=== PATIENT | female | born 1980 | race Caucasian/White ===

== ENCOUNTER 2016-08-16 11:52 | Emergency (ER) | payer BC ==
[~2016-08-16] VITALS: Ht 165.1 cm; Wt 141.1 kg
[~2016-08-16 11:52] MED LIST: BACTRIM,SEPT1 TABLET PO; BYSTOLIC5 MG PO; CIPRO500 MG PO; DILAUDID2 MG PO; ENPRESSE1 EACH PO; EXALGO8 MG PO; FENTANYL TD; FLAGYL500 MG PO; FLEXERIL10 MG PO; GAS-X80 MG PO; HORIZANT600 MG PO; KADIAN10 MG PO; LEXAPRO10 MG PO; LOW DOSE ASPIRI81 M1 PO; PROTONIX40 MG PO; TRIVORA-281 EACH PO; TYLENOL REGULA325 MG PO; TYLENOL WITH C1 EACH PO; VANCOMYCIN HCL125 MG PO; ZOFRAN ODT4 MG PO; ZOFRAN ODT8 MG PO; ZOFRAN4 MG PO
[2016-08-16] MEDS ORDERED: OSTERA TABLET1 EACH PO (14:14)
[2016-08-16 14:26] LABS: HEMATOCRIT 43.8 % (36.0-46.0); MCH 27.3 PG (29.0-34.0); MCHC 31.5 G/DL (30.0-36.0); MCV 86.6 FL (83-99); MEAN PLAT.VOLUME 10.2 uM^3 (9.5-12.4); PLATELET COUNT 317 K/uL (156-360); RBC DIS.WIDTH-CV 14.5 % (11.8-14.6); RBC DIS.WIDTH-SD 45.8 % (39-53); RED BLOOD COUNT 5.06 M/uL (3.80-5.20)
[2016-08-16 14:27] LABS: WHITE BLOOD COUNT 16.9 K/uL (4.1-10.2)
[2016-08-16 14:37] LABS: ADD MIUA? YES; BILIRUBIN NEGATIVE; BLOOD LARGE; COLOR YELLOW ((YELLOW)); GLUCOSE (STRIP) NEGATIVE; KETONES 5; LEUKOCYTES NEGATIVE; NITRITE NEGATIVE; PROTEIN (STRIP) 30; UROBILINOGEN 0.2 MG/DL (0.2-1.0)
[2016-08-16 14:38] LABS: CHLORIDE 106 mEq/L (99-109); POTASSIUM 3.9 mEq/L (3.7-5.4); SODIUM 139 mEq/L (136-147)
[2016-08-16 14:40] LABS: GLUCOSE 83 mg/dL (70-99)
[2016-08-16 14:41] LABS: ANION GAP 12 MEQ/L (2-14)
[2016-08-16 14:42] LABS: BACTERIA RARE /HPF; EPITHELIAL CELLS 2+ /HPF; MUCUS TRACE /LPF; RED BLOOD CELLS 0-5 /HPF (0-5); UCUL ADDED? NO; WHITE BLOOD CELLS 0-5 /HPF (0-5)
[2016-08-16 14:42] LABS: TOTAL BILIRUBIN 0.9 mg/dL (0.0-1.0)
[2016-08-16 14:44] LABS: ALKALINE PHOSPHATASE 74 IU/L (3-129); GFR ESTIMATE (CALCULATED) > 59 mL/min/
[2016-08-16 14:45] LABS: UREA NITROGEN (BUN) 11 mg/dL (9-23)
[2016-08-16 14:49] LABS: QUANTITATIVE HCG < 4.0 MIU/ML
[2016-08-16] MEDS ORDERED: FLAGYL500 MG PO (17:15)
[2016-08-16] MEDS ORDERED: BACTRIM,SEPT1 TABLET PO (17:15)
[2016-08-16] MEDS ORDERED: TYLENOL WITH C1 EACH PO (17:30)
[2016-08-16 17:42] VITALS: BP 130/76
== END 2016-08-16 17:47 | disposition home or self-care (01) ==
LOC: EME 11:52
DX: K57.32 Diverticulitis of large intestine without perforation or abscess without bleeding (principal); R11.2 Nausea with vomiting, unspecified; G89.29 Other chronic pain
CPT/HCPCS: 74177; 76856; 80053; 81003; 84702; 85027; 99281; 99284; J2270; J7030

== ENCOUNTER 2017-05-23 21:23 | Emergency (ER) | payer BC ==
[~2017-05-23] VITALS: Ht 162.6 cm; Wt 146.3 kg
[~2017-05-23 21:23] MED LIST changes: +OSTERA TABLET1 EACH PO
[2017-05-23 22:03] LABS: BASOPHIL (%) 0.1 % (0-1); EOSINOPHIL (%) 0 % (0-5); HEMATOCRIT 39.1 % (36.0-46.0); HEMOGLOBIN 12.6 G/DL (11.9-15.5); IMMATURE GRANULOCYTE (%) 0.6 % (0.0-0.7); LYMPHOCYTE (%) 11.3 % (15-42); LYMPHOCYTE COUNT 1.3 K/uL (1.0-2.8); MCH 28.1 PG (29.0-34.0); MCHC 32.2 G/DL (30.0-36.0); MCV 87.3 FL (83-99); MONOCYTE (%) 3.5 % (3-12); MONOCYTE COUNT 0.4 K/uL (0-0.8); NEUTROPHIL (%) 84.5 % (45-76); NEUTROPHIL COUNT 9.6 K/uL (1.8-6.4); PLATELET COUNT 340 K/uL (156-360); RBC DIS.WIDTH-CV 14.5 % (11.8-14.6); RBC DIS.WIDTH-SD 46.4 % (39-53); RED BLOOD COUNT 4.48 M/uL (3.80-5.20); WHITE BLOOD COUNT 11.3 K/uL (4.1-10.2)
[2017-05-23 22:13] LABS: CHLORIDE 110 mEq/L (99-109); POTASSIUM 3.6 mEq/L (3.7-5.4); SODIUM 140 mEq/L (136-147)
[2017-05-23 22:14] LABS: MAGNESIUM 1.8 mg/dL (1.3-2.7)
[2017-05-23 22:15] LABS: GLUCOSE 190 mg/dL (70-99)
[2017-05-23 22:19] LABS: CREATININE 0.8 mg/dL (0.6-1.3); GFR ESTIMATE (CALCULATED) > 59 mL/min/; PTT 26.1 SEC (25-37)
[2017-05-23 22:20] LABS: UREA NITROGEN (BUN) 13 mg/dL (9-23)
[2017-05-23 22:28] LABS: TROP-I INTERPRETATION NEGATIVE; TROPONIN-I 0.01 ng/mL (0.0-0.30)
[2017-05-24 01:52] LABS: TROP-I INTERPRETATION NEGATIVE; TROPONIN-I < 0.01 ng/mL (0.0-0.30)
[2017-05-24 03:02] VITALS: BP 164/87
== END 2017-05-24 03:12 | disposition home or self-care (01) ==
LOC: EME → EDBD 21:23 → EME 21:23
PROVIDERS: Emergency Medicine
DX: R07.9 Chest pain, unspecified (principal); I10 Essential (primary) hypertension; F41.0 Panic disorder [episodic paroxysmal anxiety]; E21.3 Hyperparathyroidism, unspecified; Z88.0 Allergy status to penicillin; Z88.5 Allergy status to narcotic agent; Z88.8 Allergy status to other drugs, medicaments and biological substances
CPT/HCPCS: 71045; 71275; 80048; 83735; 84484; 85025; 85379; 85610; 85730; 93005; 99281; 99285; J2270; J7030

== ENCOUNTER 2017-07-31 08:27 | Day surgery (SDC) | payer BC ==
[~2017-07-31] VITALS: Ht 167.6 cm; Wt 150.0 kg
[~2017-07-31 08:27] MED LIST changes: +CALTRATE 600 +1 EAC1 PO; +HYDROXYCHLOROQ200 MG PO; +LODINE XL500 MG PO; +MAGNESIUM400 M1 PO; +OMEPRAZOLE40 M1 PO; +SERTRALINE HCL50 MG PO
[2017-07-31 09:04] VITALS: BP 181/88
[2017-07-31] MEDS ORDERED: IBUPROFEN800 MG PO (09:45)
[2017-07-31] MEDS ORDERED: ENDOCET 5-3251 EACH PO (09:45)
[2017-07-31] MEDS ORDERED: ZOFRAN4 MG PO (09:46)
[2017-07-31 13:15] VITALS: BP 156/70
[2017-07-31 13:20] VITALS: BP 176/80
[2017-07-31 14:15] VITALS: BP 155/65
[2017-07-31 15:28] VITALS: BP 178/85
== END 2017-07-31 15:30 | disposition home or self-care (01) ==
LOC: SDC 08:27
DX: N92.0 Excessive and frequent menstruation with regular cycle (principal); R10.2 Pelvic and perineal pain; E66.01 Morbid (severe) obesity due to excess calories; Z68.43 Body mass index [BMI] 50.0-59.9, adult; N80.0 Endometriosis of uterus
CPT/HCPCS: 88307; J0690; J1100; J1885; J2250; J2405; J2765; Q0175; S0020

== ENCOUNTER 2017-09-01 22:18 | Emergency (ER) | payer BC ==
[~2017-09-01] VITALS: Ht 165.1 cm; Wt 151.5 kg
[~2017-09-01 22:18] MED LIST changes: +ENDOCET 5-3251 EACH PO; +IBUPROFEN800 MG PO
[2017-09-01 23:18] LABS: HEMATOCRIT 39.8 % (36.0-46.0); HEMOGLOBIN 12.6 G/DL (11.9-15.5); MCH 26.8 PG (29.0-34.0); MCHC 31.7 G/DL (30.0-36.0); MCV 84.5 FL (83-99); PLATELET COUNT 312 K/uL (156-360); RBC DIS.WIDTH-CV 14.6 % (11.8-14.6); RBC DIS.WIDTH-SD 44.9 % (39-53); RED BLOOD COUNT 4.71 M/uL (3.80-5.20)
[2017-09-01 23:27] LABS: ALBUMIN 4.1 g/dL (3.2-4.8)
[2017-09-01 23:28] LABS: CHLORIDE 107 mEq/L (99-109); POTASSIUM 3.5 mEq/L (3.7-5.4); SODIUM 141 mEq/L (136-147)
[2017-09-01 23:30] LABS: GLUCOSE 121 mg/dL (70-99); TOTAL PROTEIN 6.8 g/dL (6.4-8.3)
[2017-09-01 23:32] LABS: TOTAL BILIRUBIN 0.5 mg/dL (0.0-1.0)
[2017-09-01 23:33] LABS: ALKALINE PHOSPHATASE 83 IU/L (3-129); CREATININE 0.8 mg/dL (0.6-1.3); GFR ESTIMATE (CALCULATED) > 59 mL/min/
[2017-09-01 23:35] LABS: AST (GOT) 22 IU/L (2-34); UREA NITROGEN (BUN) 10 mg/dL (9-23)
[2017-09-01 23:36] LABS: ALT (GPT) 24 IU/L (3-49)
[2017-09-01 23:40] LABS: APPEARANCE CLOUDY ((CLEAR)); BILIRUBIN SMALL; BLOOD NEGATIVE; COLOR AMBER ((YELLOW)); GLUCOSE (STRIP) NEGATIVE; KETONES NEGATIVE; LEUKOCYTES MODERATE; NITRITE NEGATIVE; PROTEIN (STRIP) >=500; SPECIFIC GRAVITY 1.035 (1.000-1.030)
[2017-09-01 23:42] LABS: QUANTITATIVE HCG < 4.0 MIU/ML
[2017-09-02 00:02] LABS: BACTERIA 2+ /HPF; CALCIUM OXALATE CRYSTALS 4+ /HPF; EPITHELIAL CELLS 3+ /HPF; HYALINE CASTS 15-20 /LPF; MUCUS 4+ /LPF; RED BLOOD CELLS 0-5 /HPF (0-5); UCUL ADDED? YES; WHITE BLOOD CELLS 30-40 /HPF (0-5)
[2017-09-02 01:51] LABS: LIPASE 105 U/L (1.0-51.0)
[2017-09-02] MEDS ORDERED: CIPRO500 MG PO (02:22)
[2017-09-02 03:54] VITALS: BP 156/83
== END 2017-09-02 03:55 | disposition home or self-care (01) ==
LOC: EME 22:18
DX: N39.0 Urinary tract infection, site not specified (principal); R10.31 Right lower quadrant pain; Z90.710 Acquired absence of both cervix and uterus; M79.7 Fibromyalgia; E21.3 Hyperparathyroidism, unspecified; F41.9 Anxiety disorder, unspecified; Z88.0 Allergy status to penicillin; Z88.5 Allergy status to narcotic agent; Z88.6 Allergy status to analgesic agent
CPT/HCPCS: 74176; 80053; 81003; 83690; 84702; 85027; 87086; 99281; 99285; J0744; J2270; J2405; J7030

== ENCOUNTER 2017-09-13 10:32 | Emergency (ER) | payer BC ==
[~2017-09-13] VITALS: Ht 165.1 cm; Wt 150.0 kg
[2017-09-13 12:39] LABS: HEMATOCRIT 40.4 % (36.0-46.0); HEMOGLOBIN 12.9 G/DL (11.9-15.5); MCH 26.9 PG (29.0-34.0); MCHC 31.9 G/DL (30.0-36.0); MCV 84.3 FL (83-99); PLATELET COUNT 308 K/uL (156-360); RBC DIS.WIDTH-CV 14.7 % (11.8-14.6); RBC DIS.WIDTH-SD 45.4 % (39-53); RED BLOOD COUNT 4.79 M/uL (3.80-5.20); WHITE BLOOD COUNT 7.5 K/uL (4.1-10.2)
[2017-09-13 13:01] LABS: APPEARANCE SL.HAZY ((CLEAR)); BILIRUBIN NEGATIVE; BLOOD NEGATIVE; COLOR YELLOW ((YELLOW)); GLUCOSE (STRIP) NEGATIVE; KETONES NEGATIVE; LEUKOCYTES SMALL; NITRITE NEGATIVE; PROTEIN (STRIP) NEGATIVE; UROBILINOGEN 0.2 MG/DL (0.2-1.0)
[2017-09-13 13:08] LABS: ALBUMIN 4.2 G/DL (3.2-4.8); ALKALINE PHOSPHATASE 68 IU/L (3-129); ALT (GPT) 22 IU/L (3-49); AST (GOT) 20 IU/L (2-34); CHLORIDE 106 MEQ/L (99-109); CREATININE 0.7 MG/DL (0.6-1.3); GFR ESTIMATE (CALCULATED) > 59 mL/min/; GLUCOSE 89 mg/dL (70-99); POTASSIUM 4.3 MEQ/L (3.7-5.4); SODIUM 137 MEQ/L (136-147); TOTAL BILIRUBIN 0.4 MG/DL (0.0-1.0); TOTAL PROTEIN 6.9 G/DL (6.4-8.3); UREA NITROGEN (BUN) 11 mg/dL (9-23)
[2017-09-13 13:14] LABS: BACTERIA RARE /HPF; EPITHELIAL CELLS 2+ /HPF; MUCUS TRACE /LPF; RED BLOOD CELLS 0-5 /HPF (0-5); UCUL ADDED? NO; WHITE BLOOD CELLS 0-5 /HPF (0-5)
[2017-09-13] MEDS ORDERED: ZOFRAN ODT4 MG PO (15:18)
[2017-09-13] MEDS ORDERED: MOTRIN600 MG PO (15:18)
[2017-09-13] MEDS ORDERED: PYRIDIUM200 MG PO (15:18)
[2017-09-13] MEDS ORDERED: FLEXERIL10 MG PO (15:18)
[2017-09-13] MEDS ORDERED: ENDOCET 5-3251 EACH PO (15:20)
[2017-09-13 15:35] VITALS: BP 167/91
== END 2017-09-13 15:39 | disposition home or self-care (01) ==
LOC: EME 10:32
PROVIDERS: Nurse Practitioner Family
DX: R10.9 Unspecified abdominal pain (principal); R11.0 Nausea; M54.5 Low back pain; F41.9 Anxiety disorder, unspecified; Z90.49 Acquired absence of other specified parts of digestive tract; Z88.0 Allergy status to penicillin; Z88.5 Allergy status to narcotic agent; Z88.6 Allergy status to analgesic agent; Z88.8 Allergy status to other drugs, medicaments and biological substances
CPT/HCPCS: 80053; 81003; 85027; 99281; 99284

== ENCOUNTER 2017-10-16 11:07 | Emergency (ER) | payer BC ==
[~2017-10-16] VITALS: Ht 165.1 cm; Wt 150.6 kg
[~2017-10-16 11:07] MED LIST changes: +MOTRIN600 MG PO; +PYRIDIUM200 MG PO
[2017-10-16 12:11] LABS: BASOPHIL (%) 0.3 % (0-1); EOSINOPHIL (%) 2.5 % (0-5); EOSINOPHIL COUNT 0.2 K/uL (0-0.3); IMMATURE GRANULOCYTE (%) 0.2 % (0.0-0.7); LYMPHOCYTE (%) 25.1 % (15-42); LYMPHOCYTE COUNT 2.2 K/uL (1.0-2.8); MCH 26.6 PG (29.0-34.0); MCHC 31.6 G/DL (30.0-36.0); MCV 84.3 FL (83-99); MONOCYTE (%) 5.9 % (3-12); MONOCYTE COUNT 0.5 K/uL (0-0.8); NEUTROPHIL COUNT 5.8 K/uL (1.8-6.4); PLATELET COUNT 321 K/uL (156-360); RBC DIS.WIDTH-CV 14.8 % (11.8-14.6); RBC DIS.WIDTH-SD 45.6 % (39-53); RED BLOOD COUNT 4.51 M/uL (3.80-5.20); WHITE BLOOD COUNT 8.8 K/uL (4.1-10.2)
[2017-10-16 12:18] LABS: CHLORIDE 105 mEq/L (99-109); POTASSIUM 4.3 mEq/L (3.7-5.4)
[2017-10-16 12:19] LABS: MAGNESIUM 2.1 mg/dL (1.3-2.7); SODIUM 138 mEq/L (136-147)
[2017-10-16 12:21] LABS: GLUCOSE 89 mg/dL (70-99); TOTAL PROTEIN 6.7 g/dL (6.4-8.3)
[2017-10-16 12:23] LABS: TOTAL BILIRUBIN 0.4 mg/dL (0.0-1.0)
[2017-10-16 12:24] LABS: ALKALINE PHOSPHATASE 80 IU/L (3-129)
[2017-10-16 12:25] LABS: CREATININE 0.8 mg/dL (0.6-1.3); GFR ESTIMATE (CALCULATED) > 59 mL/min/
[2017-10-16 12:26] LABS: AST (GOT) 16 IU/L (2-34); UREA NITROGEN (BUN) 14 mg/dL (9-23)
[2017-10-16 12:28] LABS: ALT (GPT) 18 IU/L (3-49); LIPASE 79 U/L (1.0-51.0)
[2017-10-16 13:27] LABS: BILIRUBIN NEGATIVE; BLOOD NEGATIVE; COLOR YELLOW ((YELLOW)); GLUCOSE (STRIP) NEGATIVE; KETONES NEGATIVE; LEUKOCYTES TRACE; NITRITE NEGATIVE; PROTEIN (STRIP) 30; UROBILINOGEN 0.2 MG/DL (0.2-1.0)
[2017-10-16 13:28] LABS: APPEARANCE SL.HAZY ((CLEAR))
[2017-10-16 13:29] LABS: BACTERIA RARE /HPF; EPITHELIAL CELLS 1+ /HPF; MUCUS TRACE /LPF; RED BLOOD CELLS 0-5 /HPF (0-5); UCUL ADDED? NO; WHITE BLOOD CELLS 0-5 /HPF (0-5)
[2017-10-16] MEDS ORDERED: MOTRIN800 MG PO (14:49)
[2017-10-16] MEDS ORDERED: ATIVAN1 MG PO (14:49)
[2017-10-16 15:20] VITALS: BP 175/85
[2017-10-17] MEDS ORDERED: PERCOCET 5/31 TABLET PO (16:52)
== END 2017-10-16 15:20 | disposition home or self-care (01) ==
LOC: EME 11:07
PROVIDERS: Emergency Medicine
DX: M62.830 Muscle spasm of back (principal); M54.5 Low back pain; R11.2 Nausea with vomiting, unspecified; R10.2 Pelvic and perineal pain; R50.9 Fever, unspecified; Z87.442 Personal history of urinary calculi; Z90.49 Acquired absence of other specified parts of digestive tract
CPT/HCPCS: 80053; 81003; 83690; 83735; 85025; 99281; 99284; J0131; J0330; J1100; J1170; J1885; J2060; J2250; J2405; J2710; J3010; J7643; S0020

== ENCOUNTER 2017-10-17 08:54 | Observation (INO) | payer BC ==
[~2017-10-17] VITALS: Ht 165.1 cm; Wt 150.5 kg
[~2017-10-17 08:54] MED LIST changes: +ATIVAN1 MG PO; +MOTRIN800 MG PO
[2017-10-17 15:24] LABS: BASOPHIL (%) 0.4 % (0-1); EOSINOPHIL COUNT 0.3 K/uL (0-0.3); HEMATOCRIT 40.6 % (36.0-46.0); HEMOGLOBIN 12.6 G/DL (11.9-15.5); IMMATURE GRANULOCYTE (%) 0.2 % (0.0-0.7); LYMPHOCYTE (%) 30.8 % (15-42); LYMPHOCYTE COUNT 2.6 K/uL (1.0-2.8); MCH 26.3 PG (29.0-34.0); MCV 84.6 FL (83-99); MONOCYTE (%) 5.4 % (3-12); MONOCYTE COUNT 0.5 K/uL (0-0.8); NEUTROPHIL (%) 60.2 % (45-76); PLATELET COUNT 337 K/uL (156-360); RBC DIS.WIDTH-CV 14.8 % (11.8-14.6); WHITE BLOOD COUNT 8.3 K/uL (4.1-10.2)
[2017-10-17 15:36] LABS: ALBUMIN 3.9 g/dL (3.2-4.8); CHLORIDE 109 mEq/L (99-109); POTASSIUM 4.1 mEq/L (3.7-5.4); SODIUM 142 mEq/L (136-147)
[2017-10-17 15:39] LABS: GLUCOSE 77 mg/dL (70-99); TOTAL PROTEIN 6.8 g/dL (6.4-8.3)
[2017-10-17 15:42] LABS: ALKALINE PHOSPHATASE 78 IU/L (3-129); CREATININE 0.8 mg/dL (0.6-1.3); GFR ESTIMATE (CALCULATED) > 59 mL/min/; TOTAL BILIRUBIN 0.3 mg/dL (0.0-1.0)
[2017-10-17 15:43] LABS: UREA NITROGEN (BUN) 14 mg/dL (9-23)
[2017-10-17 15:44] LABS: AST (GOT) 13 IU/L (2-34)
[2017-10-17 15:45] LABS: ALT (GPT) 17 IU/L (3-49)
[2017-10-17] MEDS ORDERED: PERCOCET 5/31 TABLET PO (16:52)
[2017-10-17 19:35] VITALS: BP 170/80
[2017-10-18 00:30] VITALS: BP 138/76
[2017-10-18 01:37] VITALS: BP 160/71
[2017-10-18 03:21] VITALS: BP 146/78
== END 2017-10-18 09:46 | disposition home or self-care (01) ==
LOC: EME 08:54 → EDOF 15:10 → ENRESERV 15:23 → 2EASTP 19:09
PROVIDERS: Obstetrics & Gynecology
PROC: 0UT14ZZ Resection of Left Ovary, Percutaneous Endoscopic Approach (ICD-10-PCS; principal; 2017-10-17)
DX: N83.512 Torsion of left ovary and ovarian pedicle (principal); Z90.710 Acquired absence of both cervix and uterus; M54.9 Dorsalgia, unspecified; M79.7 Fibromyalgia; Z90.49 Acquired absence of other specified parts of digestive tract; E66.01 Morbid (severe) obesity due to excess calories; Z68.43 Body mass index [BMI] 50.0-59.9, adult; G89.29 Other chronic pain; Z88.0 Allergy status to penicillin; Z88.5 Allergy status to narcotic agent; Z88.8 Allergy status to other drugs, medicaments and biological substances; Z82.49 Family history of ischemic heart disease and other diseases of the circulatory system; Z83.3 Family history of diabetes mellitus
CPT/HCPCS: 74176; 76856; 80053; 82948; 85025; 86850; 86900; 86901; 88305; 99281; 99285; G0378; J0131; J0330; J1100; J1170; J1885; J2250; J2270; J2405; J2710; J3010; J7030; J7120; J7643; S0020